=== PATIENT | female | born 1980 | race Caucasian/White ===

== ENCOUNTER 2017-04-27 09:46 | Emergency (ER) | payer OTHER ==
[2017-04-27 10:35] LABS: URINE MUCUS NONE SEEN (Up to 25%)
[2017-04-27 10:44] LABS: URINE APPEARANCE CLOUDY; URINE BILIRUBIN NEGATIVE (NEGATIVE); URINE BLOOD 250 Ery/uL (3+) (NEGATIVE); URINE COLOR YELLOW; URINE GLUCOSE NORMAL (NEGATIVE); URINE KETONE NEGATIVE (NEGATIVE); URINE NITRITE NEGATIVE (NEGATIVE); URINE PROTEIN 30mg/dL (1+) (NEG - TRACE); URINE SPECIFIC GRAVITY 1.015 (0.001-1.035); URINE SQUAMOUS EPITHELIAL CELL 0-5/hpf (<= 15/hpf); URINE UROBILINOGEN NORMAL (NEG-1mg/dL)
[2017-04-27 10:46] LABS: URINE LEUKOCYTE ESTERASE 500 WBC/uL (3+) (NEGATIVE)
--- NOTE | 2017-04-27 10:57 | ER PHYSICIAN DOCUMENTATION ---
Physician Documentation [facility] Name:Rae Gastelum Age:37 yrs Sex:Female :1980 Arrival Date:04/27/2017 Time:09:46 Bed1 Private MD:No PCP, Identified ED Zeenat Giovanni Disposition: 04/27 11:00 Chart complete. tl1 Disposition: 04/27/17 10:46 Discharged to Home/Self Care. Impression: Bladder Infection (UTI). - Condition is Good. - Discharge Instructions: BLADDER INFECTION, Female (Adult). - Medical Reconciliation form form. - Follow up: Private Physician; When: 7 - 10 days; Reason: Recheck today's complaints. - Problem is new. - Symptoms are unchanged. - Notes: PRESCRIPTIONS FOR CEFDINIR AND PYRIDIUM HAVE BEEN SENT TO THE [facility]. HPI: 10:20 This 37 yrs old Female presents to ER via Private Vehicle with complaints of tl1 Urinary Problem. 10:20 The patient presents with urinary symptoms, dysuria, frequency, hematuria, urgency. tl1 Onset: The symptoms/episode began/occurred yesterday. Modifying factors: The symptoms are alleviated by nothing, the symptoms are aggravated by nothing. Associated signs and symptoms: Pertinent negatives: fever. Ectopic Risk: No risk factors noted. Severity of symptoms: At their worst the symptoms were mild, in the emergency department the symptoms are unchanged. The patient has experienced similar episodes in the past, multiple times, and the symptoms today are exactly the same, to when the patient was apparently diagnosed with UTI. 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 vitamin and minerals 2. Acyclovir Oral - PMHx: baldder and kidney infections; herpes; - PSHx: Hysterectomy; Appendectomy; bladder; - Tetanus: < 10 years. - Ebola Screening: : Patient negative for fever greater than or equal to 101.5 degrees Fahrenheit, and additional compatible Ebola Virus Disease symptoms. - Immunization history: Flu Vaccine None. - Social history: Smoking status: Patient states former smoker of tobacco. ROS: 10:10 Positive for urinary symptoms, flank pain, urinary frequency, hematuria, burning tl1 with urination, Negative for pelvic pain, vaginal bleeding, vaginal discharge. 10:10 All other systems are negative. Exam: 10:10 Constitutional: This is a well developed, well nourished patient who is awake, alert, tl1 and in no acute distress. 10:10 Head/Face: Normocephalic, atraumatic. tl1 10:10 Cardiovascular: Rate: normal. 10:10 Respiratory: the patient does not display signs of respiratory distress. 10:10 Abdomen/GI: Palpation: soft, mild abdominal tenderness, in the suprapubic area. 10:10 Back: CVA tenderness, is absent. 10:10 : CVA tenderness, is absent. Vital Signs: 10:06 BP 116 / 75 LA Sitting (auto/); Pulse 86; Resp 16; Temp 98.1(O); Pulse Ox 95% on R/A; la Weight 63.5 kg (R); Height 5 ft. 3 in. (160.02 cm) (R); Pain 7/10; 10:54 Pulse 68; Resp 16; Pulse Ox 96% on R/A; Pain 7/10; la 10:06 Body Mass Index 24.80 (63.50 kg, 160.02 cm) la MDM: 10:09 Patient medically screened. tl1 11:00 Data reviewed: vital signs, nurses notes, lab test result(s), urinalysis, bacteruria, tl1 hematuria, pyuria, and as a result, I will discharge patient. Counseling: I had a detailed discussion with the patient and/or guardian regarding: the historical points, exam findings, and any diagnostic results supporting the discharge/admit diagnosis, lab results, the need for outpatient follow up, to return to the emergency department if symptoms worsen or persist or if there are any questions or concerns that arise at home. 04/27 10:46 Order name: UA W/ MICRO -CULTURE IF IND; Complete Time: 10:49 EDMS 04/27 10:49 Interpretation: Abnormal: URINE APPEARANCE CLOUDY; URINE LEUKOCYTE ESTERASE 500 WBC/uL tl1 (3+); URINE PROTEIN 30mg/dL (1+); URINE BLOOD 250 Brijesh/uL (3+); URINE RBC >100/hpf; URINE WBC >100/hpf; URINE BACTERIA 10-20 ORGANISMS/hpf. 04/28 08:09 Order name: URINE CULTURE EDMS 04/29 10:16 Order name: NEGATIVE SENSITIVITY PANEL EDMS Dispensed Medications: 10:48 Drug: Pyridium 200 mg; Route: PO; la 10:57 Follow up: Response: No adverse reaction la Signatures: Leanne Lucia Tom, MD MD tl1
--- NOTE | 2017-04-27 10:57 | ER NURSING DOCUMENTATION ---
Nurse's Notes [facility] Name:Rae Gastelum Age:37 yrs Sex:Female :1980 Arrival Date:04/27/2017 Time:09:46 Bed1 Private MD:No PCP, Identified Diagnosis:Bladder Infection (UTI) Presentation: 04/27 10:02 Presenting complaint: Patient states: pt history of bladder and kidney problems, la yesterday she started with burning when urinating, today blood in urine. Transition of care: Home. 10:02 Acuity: PAULINA 4 la 10:02 Method Of Arrival: Private Vehicle la Triage Assessment: 10:05 General: Appears comfortable, Behavior is appropriate for age, cooperative, pleasant. la Pain: Complains of pain in burning with urination. EENT: No deficits noted. Neuro: No deficits noted. Level of Consciousness is awake, alert, obeys commands, Oriented to person, place, time, event. Cardiovascular: No deficits noted. Respiratory: No deficits noted. GI: No deficits noted. : Reports burning with urination since yesterday blood in urine. Derm: No deficits noted. Musculoskeletal: No deficits noted. 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 vitamin and minerals 2. Acyclovir Oral - PMHx: baldder and kidney infections; herpes; - PSHx: Hysterectomy; Appendectomy; bladder; - Tetanus: < 10 years. - Ebola Screening: : Patient negative for fever greater than or equal to 101.5 degrees Fahrenheit, and additional compatible Ebola Virus Disease symptoms. - Immunization history: Flu Vaccine None. - Social history: Smoking status: Patient states former smoker of tobacco. Screenin:08 Infectious Disease Risk Other: herpes. Abuse screen: Denies threats or abuse. la Nutritional screening: No deficits noted. Assessment: 10:07 See Triage Assessment done by same RN. la 10:13 Reassessment: water given in an effort for her to give a urine sample. Dr Epperson in room la with pt. 10:57 Reassessment: Patient states feeling better. Patient appears in no apparent distress at la this time. Vital Signs: 10:06 BP 116 / 75 LA Sitting (auto/); Pulse 86; Resp 16; Temp 98.1(O); Pulse Ox 95% on R/A; la Weight 63.5 kg (R); Height 5 ft. 3 in. (160.02 cm) (R); Pain 7/10; 10:54 Pulse 68; Resp 16; Pulse Ox 96% on R/A; Pain 7/10; la 10:06 Body Mass Index 24.80 (63.50 kg, 160.02 cm) la ED Course: 09:47 Patient arrived in ED. ds 09:47 No PCP, Identified is Private Physician. ds 10:02 Leanne Lucia is Primary Nurse. la 10:03 Triage completed. la 10:08 Valuables Remains with patient Patient has correct armband on for positive la identification. Bed in low position. Call light in reach. Door closed. Pillow given. 10:09 Giovanni Epperson MD is Attending Physician. tl1 10:25 Urine collected. Clean catch specimen. la Administered Medications: 10:48 Drug: Pyridium 200 mg; Route: PO; la 10:57 Follow up: Response: No adverse reaction la Outcome: 10:46 Discharge ordered by . tl1 10:[address] [facility] la 10:54 Condition: good 10:54 Discharge Assessment: Patient awake, alert and oriented x 3. No cognitive and/or functional deficits noted. Patient verbalized understanding of disposition instructions. 10:54 Discharge instructions given to patient, Instructed on discharge instructions, follow up and referral plans. medication usage, Demonstrated understanding of instructions, medications, Prescriptions given X 2, called into [facility] 10:57 Patient left the ED. la Signatures: Srot, Bree, Reg Reg Leanne Valenzuela Tom, MD MD tl1
[2017-04-27] MEDS ORDERED: PHENAZOPYRIDINE 100 MG TABLET PO ONE (11:00)
== END 2017-04-27 10:57 | disposition home or self-care (01) ==
LOC: ER 09:46
DX: N39.0 Urinary tract infection, site not specified (principal); B96.20 Unspecified Escherichia coli [E. coli] as the cause of diseases classified elsewhere
CPT/HCPCS: 81001; 87077; 87086; 87186; 99283